=== PATIENT | female | born 1950 | race Caucasian/White ===

== ENCOUNTER 2019-04-28 08:58 | Emergency (ER) | payer SELFPAY ==
[~2019-04-28] VITALS: Ht 160 cm; Wt 80.0 kg
[~2019-04-28 08:58] MED LIST: MED4DP PO; NAPR-985 PO
[2019-04-28 09:05] VITALS: Ht 160 cm; Wt 80.0 kg
== END 2019-04-28 10:19 | disposition home or self-care (01) ==
LOC: FTE 08:58
DX: N64.4 Mastodynia (principal); F17.210 Nicotine dependence, cigarettes, uncomplicated
CPT/HCPCS: 99282